=== PATIENT | male | born 1965 | race Caucasian/White ===

== ENCOUNTER 2024-04-16 13:59 | Emergency (ER) | payer OTHER ==
[~2024-04-16] VITALS: Ht 180.3 cm; Wt 88.6 kg
[2024-04-16 14:06] VITALS: BP 128/81; PULSE 85; RESP 16; TEMP 98.2; O2SAT 98
== END 2024-04-16 16:37 | disposition home or self-care (01) ==
LOC: ER 14:00
DX: M79.671 Pain in right foot (principal)
CPT/HCPCS: 73630; 99283; A6449